=== PATIENT | male | born 1975 | race Caucasian/White ===

== ENCOUNTER 2023-04-27 09:19 | Day surgery (SDC) | payer BC, OTHER ==
[2023-04-24 16:02] VITALS: BMI 25.0
[2023-04-27 09:43] VITALS: RESP 18; TEMP 97.7
[2023-04-27] MEDS ORDERED: PROPOFOL 80 ML ONE (11:13)
[2023-04-27 11:38] VITALS: BP 110/61; PULSE 69
== END 2023-04-27 11:40 | disposition home or self-care (01) ==
LOC: FASU-ENDO 09:19
PROVIDERS: ATTEND Internal Medicine Gastroenterology
PROC: 0DBK8ZX Excision of Ascending Colon, Via Natural or Artificial Opening Endoscopic, Diagnostic (ICD-10-PCS; 2023-04-27)
PROC: 0DBL8ZX Excision of Transverse Colon, Via Natural or Artificial Opening Endoscopic, Diagnostic (ICD-10-PCS; 2023-04-27)
PROC: 0DBN8ZX Excision of Sigmoid Colon, Via Natural or Artificial Opening Endoscopic, Diagnostic (ICD-10-PCS; 2023-04-27)
PROC: 0DBP8ZX Excision of Rectum, Via Natural or Artificial Opening Endoscopic, Diagnostic (ICD-10-PCS; 2023-04-27)
PROC: 0DBM8ZX Excision of Descending Colon, Via Natural or Artificial Opening Endoscopic, Diagnostic (ICD-10-PCS; 2023-04-27)
PROC: 0DBH8ZX Excision of Cecum, Via Natural or Artificial Opening Endoscopic, Diagnostic (ICD-10-PCS; 2023-04-27)
PROC: 0DJD8ZZ Inspection of Lower Intestinal Tract, Via Natural or Artificial Opening Endoscopic (ICD-10-PCS; principal; 2023-04-27 10:52)
DX: Z12.11 Encounter for screening for malignant neoplasm of colon (principal); K52.89 Other specified noninfective gastroenteritis and colitis; Z87.19 Personal history of other diseases of the digestive system
CPT/HCPCS: 88305-TC

== ENCOUNTER 2024-09-26 08:08 | Day surgery (SDC) | payer BC, OTHER ==
[2024-09-22 11:25] VITALS: BMI 25.4
[2024-09-26 08:28] VITALS: RESP 18
[2024-09-26 09:34] VITALS: TEMP 98
[2024-09-26 09:51] VITALS: BP 106/66; PULSE 79
== END 2024-09-26 09:50 | disposition home or self-care (01) ==
LOC: FASU-ENDO 08:08
PROVIDERS: ATTEND Internal Medicine Gastroenterology
PROC: 0DBL8ZX Excision of Transverse Colon, Via Natural or Artificial Opening Endoscopic, Diagnostic (ICD-10-PCS; 2024-09-26)
PROC: 0DBN8ZX Excision of Sigmoid Colon, Via Natural or Artificial Opening Endoscopic, Diagnostic (ICD-10-PCS; 2024-09-26)
PROC: 0DBP8ZX Excision of Rectum, Via Natural or Artificial Opening Endoscopic, Diagnostic (ICD-10-PCS; 2024-09-26)
PROC: 0DBM8ZX Excision of Descending Colon, Via Natural or Artificial Opening Endoscopic, Diagnostic (ICD-10-PCS; 2024-09-26)
PROC: 0DBH8ZX Excision of Cecum, Via Natural or Artificial Opening Endoscopic, Diagnostic (ICD-10-PCS; 2024-09-26)
PROC: 0DBK8ZX Excision of Ascending Colon, Via Natural or Artificial Opening Endoscopic, Diagnostic (ICD-10-PCS; principal; 2024-09-26 08:55)
DX: Z12.11 Encounter for screening for malignant neoplasm of colon (principal); Z87.19 Personal history of other diseases of the digestive system
CPT/HCPCS: 88305-TC